=== PATIENT | male | born 1965 | race African-American/Black ===

== ENCOUNTER 2018-07-24 16:16 | Emergency (ER) | payer OTHER, SELFPAY ==
--- NOTE | 2018-07-24 17:13 | RAD ---
FRONTAL VIEW CHEST: Date: 07/24/18 COMPARISON: 11/29/15. INDICATION: Chest pain. FINDINGS: Lungs are clear. No effusion or pneumothorax. Cardiac silhouette is normal in size. IMPRESSION: No focal consolidation. POS: [facility]
[2018-07-24 17:22] LABS: #Basophils 0.1 thou/uL (0.0-0.2); #Eosinphils 0.2 thou/uL (0.0-0.7); #Lymphocytes 3.5 thou/uL (1.20-3.40); #Monocytes 2.2 thou/uL (0.11-0.59); #Neutrophils 10.6 thou/uL (1.40-6.50); %Basophils 0.7 % (0.0-1.0); %Eosinophils 1.1 % (0.0-10.0); %Lymphocytes 20.9 % (21.0-51.0); %Monocytes 13.3 % (0.0-10.0); Hemoglobin 13.8 g/dL (14.0-18.0); Mean Corpuscular HGB CONC 31.7 g/dL (32.0-36.0); Mean Corpuscular Hemoglobin 24.6 pg (27.0-31.0); Mean Corpuscular Volume 77.6 fL (78.0-98.0); Mean Platelet Volume 8.8 fL (7.4-10.4); Platelet Count 283 thou/uL (130-400); RBC Distribution Width 14.4 % (11.5-14.5); Red Blood Cell (RBC) Count 5.59 mill/uL (4.70-6.10); White Blood Cell (WBC) Count 16.5 thou/uL (4.8-10.8)
[2018-07-24 17:39] LABS: ALT (SGPT) 21 U/L (8-55); AST (SGOT) 25 U/L (5-34); Albumin 4.5 g/dL (3.5-5.0); Alkaline Phosphatase 77 U/L (40-150); Anion Gap 17 mmol/L (10-20); BUN (Urea Nitrogen) 14 mg/dL (8.4-25.7); Bilirubin, Total 0.3 mg/dL (0.2-1.2); Calc. Creatinine Clearance 0 mL/min (70-130); Calcium 10.3 mg/dL (7.8-10.44); Carbon Dioxide 24 mmol/L (22-29); Chloride 100 mmol/L (98-107); Estimated GFR-MDRD Greater than 90; Globulin 4.5 g/dL (2.4-3.5); Glucose 107 mg/dL (70-105); Lipase 37 U/L (8-78); Potassium 4.6 mmol/L (3.5-5.1); Sodium 136 mmol/L (136-145)
--- NOTE | 2018-07-24 18:22 | CT ---
CTA OF THE THORAX AND ABDOMEN UTILIZING AORTIC DISSECTION PROTOCOL AND 3D REFORMATTED IMAGIN07/24/18 COMPARISON: Prior exam dated 11/30/15. FINDINGS: No aneurysmal dilatation is seen involving the thoracic or abdominal aorta. There is complete occlusion of the right common iliac artery which is stable to the prior exam. There is moderate to severe stenosis involving the origin of the SRIDHAR which is stable. There are dupli cated renal arteries bilaterally without hemodynamically significant stenosis. There is moderate narr owing involving the proximal aspect of the SMA which is stable to the prior exam. The celiac artery i s widely patent. No definite central pulmonary embolus is evident. No confluent air space opacity of pleural effusion is noted. No definite pathologically enlarged lymph nodes are evident. There is a small cyst within the right hepatic lobe which is stable. Hypertrophy of the adrenal glands, left greater than right are similar appearing. There is layered gallstones within the gallbladder. The pancreas and spleen appear within normal limits. No hydronephrosis is evident. No free fluid or enlarged lymph nodes are evident. Small and large michelle l are unremarkable. There are scattered degenerative and osteoarthritic change. IMPRESSION: 1. No aortic stenosis, occlusion or aneurysmal formation. 2. 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 3. Stable moderate narrowing involving the proximal SMA. Stable moderate to severe narrowing of the SRIDHAR. 4. Stable hepatic cyst. 5. Cholelithiasis. 6. Stable hypertrophy of the adrenal glands. POS: [facility]
[2018-07-24] MEDS ORDERED: Aspirin 325 MG TAB ONE (18:35)
[2018-07-24] MEDS ORDERED: Aspirin Chewable 81 MG TAB ONE (18:38)
[2018-07-24 20:16] LABS: Troponin I Less than 0.010 ng/mL (< 0.028)
--- NOTE | 2018-07-24 21:04 | CON ---
DATE OF CONSULTATION: 07/24/2018 HISTORY OF PRESENT ILLNESS: Mr. Castrejon is a 53-year-old gentleman who presents emergency department with complaint of abdominal pain. Since his evaluation, his abdominal pain is completely resolved. He has been able to tolerate a diet throughout his pain, but says that he has not had a bowel movement in 4 days. He has not tried any sort of laxatives. He has no previous history of abdominal issues. He has no nausea or vomiting. He has had no fever or chills at home. Due to his complaints, a CT dissection protocol was performed. This shows no dissection or aneurysm. In comparison to his CT scan in 2016 when he was in the hospital, he was found to have a very similar appearing abdominal and pelvic CT scan. 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 The left common iliac artery is significantly narrowed. This is patent down into his femoral system. In evaluation of his CT scan from 2016, the femoral artery on the right, reconstitutes via collaterals and has runoff down toward the knee. On the left, the superficial femoral artery is chronically occluded with collateralization via the profunda down toward the knee. From a vascular standpoint, the patient complains of claudication of approximately 20 yards. He also has rest pain. He is much more comfortable sitting with his feet dangling. He has no issues with healing or tissue loss on his feet. PAST MEDICAL HISTORY: 1. Hypertension-uncontrolled. 2. Diabetes mellitus-the patient does not ever check his blood sugar. PAST SURGICAL HISTORY: None. CURRENT MEDICATIONS: 1. Metformin. 2. Lisinopril/HCTZ. 3. Statin. ALLERGIES: NONE. SOCIAL HISTORY: The patient smokes a pack of cigarettes a day. PHYSICAL EXAMINATION: GENERAL: This is a very comfortable appearing gentleman, resting on the stretcher with his feet dangling. VITAL SIGNS: His heart rate is 75 and regular, blood pressure 155/90. HEENT: Sclerae nonicteric. Pupils are equal and round bilaterally. NECK: Supple. He has no carotid bruit. CHEST: Clear bilaterally. HEART: Rhythm is regular. ABDOMEN: Soft and nontender, although protuberant. VASCULAR: He has palpable carotid and radial pulses bilaterally. I cannot palpate femoral or dorsalis pedis pulses on either side. He has a Doppler signal that is very soft and monophasic in both dorsalis pedis arteries bilaterally. ASSESSMENT AND PLAN: I reviewed his CT angiogram series. He really needs a formal aorta with runoff CT angiogram, which can be done as an outpatient. He also needs a cardiac workup and carotid ultrasound due to his previous stroke history. After all this, if we can discuss appropriate vascular reconstruction at that point, we will get him back to the office. Job ID: [id number]
--- NOTE | 2018-07-26 15:33 | EKG ---
Test Reason : CHEST PAIN Blood Pressure : / mmHG Vent. Rate : 091 BPM Atrial Rate : 091 BPM P-R Int : 126 ms QRS Dur : 078 ms QT Int : 354 ms P-R-T Axes : 024 084 050 degrees QTc Int : 435 ms Normal sinus rhythm No STEMI Normal ECG Confirmed by KIM Parmar, GIGI ([id number]), video effects editor CHAGO DAVENPORT ([id number]) on 07/26/2018 3:33:38 PM Referred By: Confirmed By:GIGI ALVAREZ M.D.
== END 2018-07-24 22:00 | disposition home or self-care (01) ==
LOC: ERS 16:16
DX: R07.89 Other chest pain (principal); I74.5 Embolism and thrombosis of iliac artery; K80.20 Calculus of gallbladder without cholecystitis without obstruction; E11.9 Type 2 diabetes mellitus without complications; E78.5 Hyperlipidemia, unspecified; I10 Essential (primary) hypertension; F17.210 Nicotine dependence, cigarettes, uncomplicated; Z79.84 Long term (current) use of oral hypoglycemic drugs; Z79.899 Other long term (current) drug therapy
CPT/HCPCS: 36415; 71045; 71275; 80053; 83690; 84484; 85025; 93005; 96360

== ENCOUNTER 2019-02-09 08:05 | Outpatient (CLI) | payer OTHER ==
--- NOTE | 2019-02-09 09:24 | CT ---
EXAM: CTA of the abdomen, pelvis, and bilateral lower extremities HISTORY: Peripheral vascular disease pain and numbness in the right leg; weakness in the right leg COMPARISON: 11/30/2015 TECHNIQUE: Multiple contiguous axial images were obtained a CTA of the abdomen, pelvis, and bilateral lower extremities with contrast. Sagittal and coronal 3-D MIP reformats were performed. FINDINGS: Liver: A small stable hypodensity in the liver likely represents a cyst.. Gallbladder: Gallstones are seen in the dependent aspect of the gallbladder. Kidneys: There is hyperplasia of both adrenal glands, left greater than right. Adrenal glands: Unremarkable. Spleen: Unremarkable. Pancreas: Unremarkable. Bowel: Unremarkable. Normal appendix. Reproductive organs :Unremarkable. Retroperitoneum: No lymphadenopathy Bones: Degenerative changes in the spine. Inferior thorax: Unremarkable. Abdominal aorta. Normal caliber without evidence of dissection or aneurysmal dilatation. Celiac trunk: Patent. SMA: Patent. Mild atherosclerotic disease at the ostium SRIDHAR: Patent. 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 Moderate diffuse nonfocal atherosclerotic disease of the left common iliac artery. Internal iliac arteries: Occluded and heavily diseased bilateral internal iliac arteries. External iliac arteries: Occluded right external iliac artery. Moderately diseased left external mar c artery. Common femoral arteries: Mildly diseased bilateral common femoral arteries. The right common femoral artery demonstrates flow via collaterals. Profunda femoral arteries: Unremarkable. Superficial femoral arteries: Severe focal atherosclerotic disease of the proximal right superficial femoral artery just distal to the bifurcation over a length of approximately 2.5 cm. Occlusion of the right superficial femoral artery along the midportion. Occlusion of the left superficial femoral artery at its takeoff proximally. Popliteal arteries: Mild diffuse atherosclerotic disease bilaterally. Reconstitution of flow bilatera lly via profunda collaterals.. Right lower extremity: Occlusion of the right peroneal artery. Moderately diseased right posterior ti bial artery beginning along its midportion extending distally. Moderately diseased left anterior tibial artery proximally and moderately diseased left posterior tibial artery along the midportion. T hree-vessel runoff is seen on the left and 2 vessel runoff on the right.. Left lower extremity: 3 vessel runoff without significant disease IMPRESSION: Stable atherosclerotic disease bilaterally with stable occlusion of the right common iliac artery and stable bilateral superficial femoral artery occlusion.
[2019-02-09] MEDS ORDERED: ADENOSINE 60 MG/20 ML VIAL ONE (10:01)
[2019-02-09] MEDS ORDERED: Iopamidol 370 76% 100 ML VIAL ONE (10:47)
--- NOTE | 2019-02-09 12:41 | NM ---
EXAM: Nuclear medicine cardiac perfusion examination with ejection fraction HISTORY: Preoperative examination. History of hypertension, diabetes, and dyslipidemia TECHNIQUE: Rest images: 9.8 mCi technetium 99m sestamibi Stress images: 30.7 mCi of technetium 9M sestamibi; Adenosine COMPARISON: None FINDINGS: Tomographic images: No fixed or reversible perfusion defects. Gated images: Normal wall motion and ejection fraction of 61%. EDV: 96 mL LHR: 0.3 TID: 1.1 IMPRESSION: No evidence of ischemia
--- NOTE | 2019-02-10 13:06 | STRESS ---
Acquisition Time: 2019-02-09 10:52:22 Total Exercise Time: 00:04:00 Test Indications: PREOPERATIVE CLEARANCE Medications: Protocol: ADENOSINE Max HR: 102 BPM 61% of Pred: 165 BPM Max BP: 160/080 mmHG Max Work Load: 1.0 METS RESTING ECG: NORMAL SINUS RHYTHM AT 67 BPM SYMPTOMS: DYSPNEA ON EXERTION NORMAL BP RESPONSE ECTOPY: NONE ECG STRESS: NO SIGNIFICANT CHANGES INTERPRETATION: AWAIT NUCLEAR IMAGES FOR DEFINITIVE DIAGNOSIS Confirmed by MOOK PIERRE ([id number]), editor managing director ROSY FLOOD ([id number]) on 02/10/2019 1:06:04 PM Referred By: MD Alex VELIZ Confirmed By:MOOK PIERRE
== END 2019-02-09 08:06 | disposition home or self-care (01) ==
LOC: CT 08:05
PROVIDERS: ATTEND Thoracic Surgery (Cardiothoracic Vascular Surgery)
DX: Z01.818 Encounter for other preprocedural examination (principal); I70.213 Atherosclerosis of native arteries of extremities with intermittent claudication, bilateral legs; I74.5 Embolism and thrombosis of iliac artery
CPT/HCPCS: 75635; 78452; 93017; A9500; J0153; Q9967

== ENCOUNTER 2019-02-13 11:30 | Inpatient (IN) | payer OTHER ==
[2019-02-13 13:29] LABS: Hemoglobin 14.2 g/dL (14.0-18.0); Mean Corpuscular HGB CONC 33.1 g/dL (32.0-36.0); Mean Corpuscular Hemoglobin 24.9 pg (27.0-31.0); Mean Corpuscular Volume 75.2 fL (78.0-98.0); Mean Platelet Volume 9.1 fL (7.4-10.4); Platelet Count 233 thou/uL (130-400); Red Blood Cell (RBC) Count 5.71 mill/uL (4.70-6.10); White Blood Cell (WBC) Count 12.2 thou/uL (4.8-10.8)
[2019-02-13 13:49] LABS: Anion Gap 14 mmol/L (10-20); BUN (Urea Nitrogen) 9 mg/dL (8.4-25.7); Calc. Creatinine Clearance 0 mL/min (70-130); Calcium 10.2 mg/dL (7.8-10.44); Carbon Dioxide 26 mmol/L (22-29); Chloride 104 mmol/L (98-107); Estimated GFR-MDRD Greater than 90; Glucose 73 mg/dL (70-105); Potassium 4.8 mmol/L (3.5-5.1); Sodium 139 mmol/L (136-145)
[2019-02-16] MEDS ORDERED: CEFAZOLIN 2 GM in Premix Bag 1 BAG IVPB SCH (06:30)
[2019-02-16] MEDS ORDERED: Vancomycin HCl 1.5 GM in Sodium Chloride 0.9% 250 ML 300 ML IVPB SCH ×2 (06:30→12:00)
[2019-02-16] MEDS ORDERED: Dexmedetomidine 200 MCG/2 ML VIAL ONE (06:52)
[2019-02-16] MEDS ORDERED: Norepinephrine 4 MG/4 ML VIAL ONE ×2 (06:52→07:04)
[2019-02-16] MEDS ORDERED: Vecuronium 10 MG VIAL ONE ×2 (06:52→16:39)
[2019-02-16] MEDS ORDERED: Fentanyl 250 MCG/5 ML VIAL ONE (06:52)
[2019-02-16] MEDS ORDERED: Midazolam HCl 2 mg/2 ml Vial ONE ×2 (06:52→07:12)
[2019-02-16] MEDS ORDERED: Heparin 10,000 UNITS/1 ML VIAL 30,000 UNITS in Sodium Chloride 0.9% 1,000 ML FS SCH (07:15)
[2019-02-16] MEDS ORDERED: Heparin 5,000 UNITS/ML VIAL ONE (08:01)
[2019-02-16] MEDS ORDERED: Albumin 5% 0 ML ONE (08:49)
[2019-02-16] MEDS ORDERED: Albumin 5% 500 ML ONE (08:49)
[2019-02-16] MEDS ORDERED: Insulin Regular 300 UNITS/3 ML VIAL ONE (08:59)
[2019-02-16] MEDS ORDERED: Protamine Sulfate 50 MG/5 ML VIAL ONE ×2 (09:47)
[2019-02-16] MEDS ORDERED: Nitroglycerin 50 MG/250 ML BOT 250 ML IVPB PRN (10:52)
[2019-02-16] MEDS ORDERED: Insulin Regular 300 UNITS/3 ML VIAL SC PRN (10:52)
[2019-02-16] MEDS ORDERED: Acetaminophen 325 MG TAB PO PRN (10:52)
[2019-02-16] MEDS ORDERED: Ondansetron PF 4 MG/2 ML Vial IVP PRN (10:52)
[2019-02-16] MEDS ORDERED: Fentanyl 100 MCG/2 ML VIAL SLOW IVP PRN (10:52)
[2019-02-16] MEDS ORDERED: Promethazine HCl 25 MG/ML VIAL PR PRN (10:52)
[2019-02-16] MEDS ORDERED: Phenylephrine 10 MG/NS 250 ML 250 ML IVPB PRN (10:52)
[2019-02-16] MEDS ORDERED: Promethazine HCl 25 MG/ML VIAL IM PRN (10:52)
[2019-02-16] MEDS ORDERED: Fentanyl 100 MCG/2 ML VIAL ONE (11:04)
[2019-02-16] MEDS ORDERED: Ondansetron HCl/PF 4 MG/2 ML Vial IVP PRN (12:13)
--- NOTE | 2019-02-16 12:30 | CON ---
DATE OF CONSULTATION: HISTORY OF PRESENT ILLNESS: Kurt Castrejon is a 53-year-old gentleman, who underwent aortobifem surgery by Dr. Kelvin Richard. He is in the PAC unit. There are no family members. Having some pain, but denies any difficulty breathing. He is extubated. PAST MEDICAL HISTORY: Pertinent for hypertension and diabetes. PAST SURGICAL HISTORY: None. SOCIAL HISTORY: Tobacco a pack a day. Drinks several beers a day. SOCIAL HISTORY: Unremarkable. FAMILY HISTORY: Unremarkable. HOME MEDICATIONS: Includes, 1. Glyburide 5. 2. Pravachol 40. 3. Lisinopril 20. ALLERGIES: NONE. REVIEW OF SYSTEMS: Ten-point negative. Postop in the PAC unit. PHYSICAL EXAMINATION: VITAL SIGNS: Saturations are 96% on room air, pulse 70, blood pressure . CHEST: No wheezing or crackles. CARDIAC: Normal S1 and S2. No gallops. ABDOMEN: No mass. LABORATORY DATA: Blood sugar is 188. His white count is 12,000, H and H 14 and 42, and platelet count is normal. His chemistry profile, 02/13/2019, shows normal renal function. ASSESSMENT: 1. Status post aortobifemoral surgery. 2. Diabetes. 3. Hypertension. 4. History of previous left-sided Wisdom's palsy. PLAN: Pulmonary will follow while in the ICU. Continue supportive care, neb treatment, PT, early ambulation. Consultation note, 70 minutes, 50% direct patient care. Job ID: [id number]
--- NOTE | 2019-02-16 13:28 | OP ---
DATE OF PROCEDURE: 02/16/2019 PREOPERATIVE DIAGNOSIS: Aortoiliac occlusive disease. POSTOPERATIVE DIAGNOSIS: Aortoiliac occlusive disease. PROCEDURES PERFORMED: 1. Aorto left common iliac and right common femoral/superficial femoral artery bypass utilizing a 16 x 8 Hemashield Gold bifurcated graft. 2. Right common femoral artery endarterectomy. REAL ESTATE PHOTOGRAPHER SURGEON: Hunter Vaqzuez MD ANESTHESIA: General endotracheal - Dr. Onofre Bowen. ESTIMATED BLOOD LOSS: Minimal. CELL SAVER: 234 mL. DESCRIPTION OF PROCEDURE: After consent was obtained, the patient was brought to the operating room, placed in supine position on the operating table. Appropriate central line and monitors were placed and general anesthesia was induced. Abdomen, groins, and legs were prepped and draped in usual sterile fashion. A skin incision was made over the common femoral artery on the right. Common femoral, profunda femoris, and superficial femoral arteries are all carefully dissected free from surrounding tissues. A subcutaneous tunnel was created under the inguinal ligament. The groin was packed with Betadine-soaked gauze. A midline abdominal incision was made and dissection through the linea alba and peritoneum obtained with electrocautery. [place] and [place] retractors were brought in the operative field. The omentum was retracted superiorly. The omentum was carefully dissected free from the adhesions to the white line of [place] on the right. Small bowel was delivered to the right. The duodenum was carefully dissected free from the retroperitoneum and delivered to the right. The retroperitoneum was entered. The aorta and aortic bifurcation were carefully dissected free. The SRIDHAR was divided between clips. This was a small artery that was patent but very small on CT angio. The patient was given 7500 units of heparin. After 3 minutes, the aorta and right common iliac arteries were clamped. An incision was made in the aorta and extended up towards the left renal vein. The 16 x 8 graft had been preselected and it was sewn in place with running 4-0 prolene suture. On release of clamps, good hemostasis. The right limb of the graft was tunneled through the retroperitoneum into the groin. The left limb of the graft was cut to appropriate length and sewn in place to the left common iliac artery. Antegrade flow was reestablished to the left leg. Hemostasis was ensured with both anastomoses. Attention was then turned to the right groin. Common femoral, profunda femoris branches, and the SFA were clamped. The SFA was soft and the incision was begun on the SFA and extended back proximally to the common femoral artery proximal to the profunda branches. The profunda was back blood easily. An endarterectomy was performed to clear the SFA and common femoral artery of all the plaque. The graft was cut to appropriate length for a long patch angioplasty and sewn in place with running 5-0 Prolene suture. On release of the clamps in the groin, there was good backbleeding. Artery was flushed with heparinized saline and suture line tied. Multiple stitches were placed for hemostasis. Antegrade flow was reestablished down the graft. Protamine was administered. Hemostasis was ensured in the groin and the wound was packed. Attention was returned back to the abdominal cavity. The graft and anastomoses in the abdomen were inspected for hemostasis. The graft was retroperitonealized with running 2-0 Vicryl suture. The bowels were placed back in anatomic position and covered with omentum. The midline fascia was closed in a running fashion with looped #1 PDS. The wound was then irrigated and closed with clips. Groin incision was inspected, there was a great palpable pulse within the femoral artery distal to the graft. Wound was irrigated, closed in layers and Dermabond applied to skin. The patient tolerated the procedure well, was awakened, extubated, and transferred to the recovery room in stable condition. Job ID: [id number]
--- NOTE | 2019-02-16 14:08 | RAD ---
PORTABLE CHEST: HISTORY: Central line placement. COMPARISON: 07/24/2018 FINDINGS: Heart size appears borderline enlarged, considering the portable technique. A left subclavian line h as been placed. The catheter tip overlies the superior vena cava. There are no signs of pneumothora x. An NG tube is seen with the tip below the hemidiaphragm. Surgical lexi are seen in the abdome n, midline. Subsegmental atelectatic changes are seen in the lung bases. IMPRESSION: 1. Placement of a left central line. No signs of pneumothorax. 2. Subsegmental atelectasis in the lung bases. POS: [facility]
[2019-02-16] MEDS: CEFAZOLIN 2 GM in Premix Bag 1 BAG IVPB SCH ×2 (15:08→21:32)
[2019-02-16] MEDS: Ketorolac Tromethamine 30 MG/ML VIAL IVP SCH ×3 (15:09→22:31)
[2019-02-16] MEDS: D5 1/2 NS w/20 mEq KCL 1,000 ML IV SCH ×2 (15:10→22:32)
[2019-02-16] MEDS: Vancomycin HCl 1.5 GM in Sodium Chloride 0.9% 250 ML 300 ML IVPB SCH (15:53)
[2019-02-16] MEDS ORDERED: Heparin 10,000 UNITS/ 10 ML VIAL ONE (16:39)
[2019-02-16] MEDS ORDERED: Ondansetron PF 4 MG/2 ML Vial ONE (16:39)
[2019-02-16] MEDS ORDERED: Lidocaine 1% PF 5 ML VIAL ONE (16:39)
[2019-02-16] MEDS ORDERED: Glycopyrrolate 0.2 MG/ML 5 ML SYRINGE ONE (16:39)
[2019-02-16] MEDS ORDERED: PROPOFOL 200 MG/20 ML VIAL ONE (16:39)
[2019-02-16 17:21] VITALS: BMI 26.7
[2019-02-16] MEDS: Morphine 2 MG/ML SYRINGE SLOW IVP PRN (21:07)
[2019-02-16] MEDS: hydrALAZINE 20 MG/ML VIAL SLOW IVP PRN (22:31)
[2019-02-16] MEDS: Fentanyl 100 MCG/2 ML VIAL SLOW IVP PRN (23:14)
[2019-02-17] MEDS: Morphine 2 MG/ML SYRINGE SLOW IVP PRN ×2 (01:47→05:18)
[2019-02-17] MEDS: Vancomycin HCl 1.5 GM in Sodium Chloride 0.9% 250 ML 300 ML IVPB SCH (03:39)
[2019-02-17] MEDS: Fentanyl 100 MCG/2 ML VIAL SLOW IVP PRN (03:39)
[2019-02-17] MEDS: hydrALAZINE 20 MG/ML VIAL SLOW IVP PRN (04:40)
[2019-02-17 04:45] LABS: #Basophils 0.1 thou/uL (0.0-0.2); #Eosinphils 0.1 thou/uL (0.0-0.7); #Lymphocytes 1.6 thou/uL (1.20-3.40); #Monocytes 1.5 thou/uL (0.11-0.59); #Neutrophils 11.5 thou/uL (1.40-6.50); %Basophils 0.6 % (0.0-1.0); %Eosinophils 0.8 % (0.0-10.0); %Lymphocytes 10.8 % (21.0-51.0); %Monocytes 9.9 % (0.0-10.0); %Neutrophils 77.9 % (42.0-75.0); Mean Corpuscular HGB CONC 31.9 g/dL (32.0-36.0); Mean Corpuscular Hemoglobin 24.2 pg (27.0-31.0); Mean Corpuscular Volume 75.9 fL (78.0-98.0); Mean Platelet Volume 8.6 fL (7.4-10.4); Platelet Count 183 thou/uL (130-400); RBC Distribution Width 13.7 % (11.5-14.5); Red Blood Cell (RBC) Count 4.96 mill/uL (4.70-6.10); White Blood Cell (WBC) Count 14.8 thou/uL (4.8-10.8)
[2019-02-17] MEDS: Ketorolac Tromethamine 30 MG/ML VIAL IVP SCH ×4 (05:18→23:44)
[2019-02-17] MEDS: CEFAZOLIN 2 GM in Premix Bag 1 BAG IVPB SCH (05:18)
[2019-02-17 05:41] LABS: Anion Gap 10 mmol/L (10-20); BUN (Urea Nitrogen) 10 mg/dL (8.4-25.7); Calc. Creatinine Clearance 114 mL/min (70-130); Calcium 8.3 mg/dL (7.8-10.44); Carbon Dioxide 24 mmol/L (22-29); Chloride 107 mmol/L (98-107); Estimated GFR-MDRD Greater than 90; Glucose 118 mg/dL (70-105); Potassium 3.1 mmol/L (3.5-5.1); Sodium 138 mmol/L (136-145)
[2019-02-17] MEDS ORDERED: Potassium Chloride 20 MEQ in Premix Bag 1 BAG IVPB SCH (07:00)
[2019-02-17] MEDS: Aspirin Chewable 81 MG TAB PO SCH (07:53)
[2019-02-17] MEDS: Lisinopril 20 MG TAB PO SCH (07:54)
--- NOTE | 2019-02-17 08:57 | PRG ---
DATE OF SERVICE: 02/17/2019 SUBJECTIVE: This morning, he is awake, alert, and responsive. He is still having some pain, but no shortness of breath. OBJECTIVE: VITAL SIGNS: Pulse 93, blood pressure 120/75, respirations 18, saturations 96%. CHEST: Bilateral rhonchi. CARDIAC: Normal S1 and S2. No gallops. ABDOMEN: No masses. LABORATORY DATA: White count 14,000. Lytes are normal. Potassium 3.3. He is still on a nitroglycerin drip, which is being weaned off. ASSESSMENT: Chronic obstructive pulmonary disease, status post aortobifemoral. Agree with aggressive neb treatments. PT, supportive care. We will follow. Job ID: [id number] [facility]
[2019-02-17] MEDS: HYDROcodone/Acetaminophen 5/325 mg Tablet PO PRN ×2 (12:49→19:46)
[2019-02-17] MEDS: D5 1/2 NS w/20 mEq KCL 1,000 ML IV SCH ×2 (14:06→19:45)
--- NOTE | 2019-02-17 17:20 | CON ---
DATE OF CONSULTATION: Mr. Castrejon is a 53-year-old male, who underwent surgery with Dr. Richard yesterday morning. He had an aorto left common iliac and right common femoral, superficial femoral artery bypass using a 16 x 8 Hemashield Gold bifurcated graft. He had a right common femoral endarterectomy. He is transferred to critical care unit afterwards and is doing well postextubation. My partner saw this patient. CANCELED DICTATION Job ID: [id number]
[2019-02-17] MEDS: Atorvastatin Calcium 10 MG TAB PO SCH (20:39)
[2019-02-18] MEDS: D5 1/2 NS w/20 mEq KCL 1,000 ML IV SCH (05:00)
[2019-02-18] MEDS: HYDROcodone/Acetaminophen 5/325 mg Tablet PO PRN ×4 (05:00→20:18)
[2019-02-18] MEDS: Ketorolac Tromethamine 30 MG/ML VIAL IVP SCH ×4 (05:33→23:43)
[2019-02-18] MEDS ORDERED: D5 1/2 NS w/20 mEq KCL 1,000 ML IV SCH (07:12)
[2019-02-18] MEDS: Aspirin Chewable 81 MG TAB PO SCH (09:06)
[2019-02-18] MEDS: Lisinopril 20 MG TAB PO SCH (09:06)
--- NOTE | 2019-02-18 09:36 | PRG ---
DATE OF SERVICE: 02/18/2019 SUBJECTIVE: The patient this morning, he is better, less short of breath, less pain. OBJECTIVE: VITAL SIGNS: Saturations are 93% on room air, pulse 91, respiratory rate 16, blood pressure 120/88. CHEST: No wheezing, crackles. CARDIAC: Normal S1, S2. No gallops. ABDOMEN: No masses. ASSESSMENT: Chronic obstructive pulmonary disease, stable. PLAN: Continue present treatment. Will be transferred out of the ICU. Job ID: [id number]
[2019-02-18] MEDS: hydrALAZINE 20 MG/ML VIAL SLOW IVP PRN (16:22)
[2019-02-18] MEDS ORDERED: Furosemide 40 MG/4 ML VIAL SLOW IVP SCH (17:45)
[2019-02-18] MEDS: Atorvastatin Calcium 10 MG TAB PO SCH (20:19)
[2019-02-19] MEDS: Ketorolac Tromethamine 30 MG/ML VIAL IVP SCH ×4 (05:34→23:45)
[2019-02-19] MEDS: Aspirin Chewable 81 MG TAB PO SCH (08:19)
[2019-02-19] MEDS: Lisinopril 20 MG TAB PO SCH (08:19)
--- NOTE | 2019-02-19 09:21 | PRG ---
DATE OF SERVICE: 02/19/2019 SUBJECTIVE: This morning, he is doing well, less pain, less shortness of breath. OBJECTIVE: VITAL SIGNS: Saturations are 90% on room air, respiratory rate 14, temperature 98, blood pressure 130/88. CHEST: No wheezing. CARDIAC: Normal S1 and S2. No gallops. ABDOMEN: No masses. ASSESSMENT: Chronic obstructive pulmonary disease, status post aortobifem. PLAN: Continue present neb treatment, PT, supportive care. Disposition as per Surgery. Job ID: [id number]
[2019-02-19] MEDS: glyBURIDE 5 MG TAB PO SCH (17:32)
[2019-02-19] MEDS: Atorvastatin Calcium 10 MG TAB PO SCH (22:21)
[2019-02-19] MEDS: hydrALAZINE 20 MG/ML VIAL SLOW IVP PRN (22:21)
[2019-02-20] MEDS: Ketorolac Tromethamine 30 MG/ML VIAL IVP SCH ×3 (05:43→17:03)
[2019-02-20] MEDS: hydrALAZINE 20 MG/ML VIAL SLOW IVP PRN ×3 (05:44→18:04)
--- NOTE | 2019-02-20 09:19 | PRG ---
DATE OF SERVICE: 02/20/2019 SUBJECTIVE: This is a 53-year-old gentleman, status post aortobifem who is doing well. OBJECTIVE: VITAL SIGNS: Blood pressure 146/77, saturations are 100% on room air, pulse 16, temperature 98. CHEST: No wheezing, crackles. CARDIAC: Normal S1, S2. No gallops. ASSESSMENT AND PLAN: Status post aortobifem, chronic obstructive pulmonary disease stable. Disposition as per Surgery. Pulmonary will follow at a distance. Job ID: [id number]
[2019-02-20] MEDS: Lisinopril 20 MG TAB PO SCH (09:44)
[2019-02-20] MEDS: Aspirin Chewable 81 MG TAB PO SCH (09:44)
[2019-02-20] MEDS: HYDROcodone/Acetaminophen 5/325 mg Tablet PO PRN (10:02)
[2019-02-20] MEDS: glyBURIDE 5 MG TAB PO SCH (17:03)
[2019-02-20] MEDS: Atorvastatin Calcium 10 MG TAB PO SCH (20:02)
[2019-02-20] MEDS ORDERED: Lisinopril 20 MG TAB PO SCH (20:45)
[2019-02-21] MEDS: Ketorolac Tromethamine 30 MG/ML VIAL IVP SCH ×3 (00:18→11:54)
[2019-02-21] MEDS: Lisinopril 20 MG TAB PO SCH (09:05)
[2019-02-21] MEDS: Aspirin Chewable 81 MG TAB PO SCH (09:05)
[2019-02-21 10:54] VITALS: BP 149/73; TEMP 97.6
--- NOTE | 2019-02-22 12:33 | DIS ---
DATE OF ADMISSION: 02/16/2019 DATE OF DISCHARGE: 02/20/2019 DIAGNOSES: Peripheral vascular disease status post aorto right common femoral, left common iliac artery bypass. DESCRIPTION OF HOSPITAL STAY: Mr. Castrejon was admitted electively by iliac/femoral bypass. He has done well postoperatively. Currently, he is ambulatory, tolerating regular diet, having good bowel and bladder function. Incision is clean and dry without evidence of infection. DISCHARGE MEDICATIONS: Include: 1. Aspirin 81 mg daily. 2. Glyburide 5 mg at bedtime. 3. Lisinopril 20 mg daily. 4. Pravachol 40 mg daily. 5. Eure 5/325 one to two q.6 hours p.r.n. pain. FOLLOWUP: Follow up with me in 2 weeks. Job ID: [id number]
[2019-02-24 16:01] LABS: Actual Bicarbonate (HCO3a) 21.1 mEq/L (22-28); Analyzer IN Cardio OR; Base Excess (BEa) -4.2 mEq/L (-2.0 to +3.0); CO2 Tension 39.4 mmHg (35.0-45.0); Calcium, Ionized 1.07 mmol/L (1.12-1.30); Hemoglobin (Hb) 10.8 g/dL (14.0-18.0); Potassium - ABG Lab 2.89 mmol/L (3.70-5.30); pH, Arterial 7.35 (7.35-7.45)
[2019-02-24 16:02] LABS: Actual Bicarbonate (HCO3a) 20.5 mEq/L (22-28); Analyzer IN Cardio OR; CO2 Tension 28.7 mmHg (35.0-45.0); Calcium, Ionized 1.09 mmol/L (1.12-1.30); Carboxyhemoglobin (COHb) 1.5 gm% (0.0-3.0); Hemoglobin (Hb) 12.5 g/dL (14.0-18.0); Potassium - ABG Lab 3.25 mmol/L (3.70-5.30); pH, Arterial 7.47 (7.35-7.45)
[2019-02-24 16:02] LABS: Actual Bicarbonate (HCO3a) 20.6 mEq/L (22-28); Analyzer IN Cardio OR; Base Excess (BEa) -3.5 mEq/L (-2.0 to +3.0); CO2 Tension 34.2 mmHg (35.0-45.0); Calcium, Ionized 1.11 mmol/L (1.12-1.30); Carboxyhemoglobin (COHb) 1.2 gm% (0.0-3.0); Hemoglobin (Hb) 12.1 g/dL (14.0-18.0); O2 Tension (PaO2) 317.1 mmHg (80.0-100.0); Potassium - ABG Lab 3.41 mmol/L (3.70-5.30)
[2019-02-24 16:03] LABS: Puncture Site ALINE
[2019-02-24 16:04] LABS: O2 Tension (PaO2) 537.1 mmHg (80.0-100.0); Puncture Site ALINE
[2019-02-24 16:04] LABS: Puncture Site ALINE
== END 2019-02-21 14:35 | disposition home or self-care (01) | DRG 271 ==
LOC: SURG A 02-16 05:31 → CCU 02-16 11:18 → SURG A 02-19 07:19
PROVIDERS: ADMIT Thoracic Surgery (Cardiothoracic Vascular Surgery); ATTEND Thoracic Surgery (Cardiothoracic Vascular Surgery)
PROC: 041 Lower Arteries, Bypass (ICD-10-PCS; principal; 2019-02-16)
PROC: 04100JH Bypass Abdominal Aorta to Right Femoral Artery with Synthetic Substitute, Open Approach (ICD-10-PCS; 2019-02-16)
DX: E11.51 Type 2 diabetes mellitus with diabetic peripheral angiopathy without gangrene (principal); I74.09 Other arterial embolism and thrombosis of abdominal aorta; I70.213 Atherosclerosis of native arteries of extremities with intermittent claudication, bilateral legs; I25.10 Atherosclerotic heart disease of native coronary artery without angina pectoris; I10 Essential (primary) hypertension; E78.2 Mixed hyperlipidemia; F17.210 Nicotine dependence, cigarettes, uncomplicated; J44.9 Chronic obstructive pulmonary disease, unspecified; Z79.84 Long term (current) use of oral hypoglycemic drugs; Z79.899 Other long term (current) drug therapy
CPT/HCPCS: 36415; 36416; 36430; 71045; 80048; 82805; 85025; 85027; 86850; 86900; 86901; 94640; J0360; J0690; J1642; J1644; J1815; J1885; J1940; J2001; J2250; J2270; J2405; J2704; J2720; J3010; J3370; J3480; J7050; J7620; P9045

== ENCOUNTER 2019-02-13 11:56 | Outpatient (CLI) | payer OTHER ==
--- NOTE | 2019-02-13 17:02 | EKG ---
Test Reason : Blood Pressure : / mmHG Vent. Rate : 076 BPM Atrial Rate : 076 BPM P-R Int : 156 ms QRS Dur : 086 ms QT Int : 384 ms P-R-T Axes : 076 090 044 degrees QTc Int : 432 ms Normal sinus rhythm Rightward axis Borderline ECG When compared with ECG of 24-JUL-2018 16:23, No significant change was found Confirmed by DR. Marvin BRANDON ([id number]) on 02/13/2019 5:01:31 PM Referred By: AUDRA Confirmed By:DR. Marvin BRANDON
== END 2019-02-13 11:57 | disposition home or self-care (01) ==
LOC: LABBT 11:56
PROVIDERS: ATTEND Thoracic Surgery (Cardiothoracic Vascular Surgery)
DX: Z01.810 Encounter for preprocedural cardiovascular examination (principal); I73.9 Peripheral vascular disease, unspecified
CPT/HCPCS: 93005; 93010

== ENCOUNTER 2019-07-06 22:45 | Emergency (ER) | payer OTHER | END 2019-07-06 23:22 | disposition home or self-care (01) | LOC: ERS 22:45 | DX: E11.621 Type 2 diabetes mellitus with foot ulcer (principal); L97.519 Non-pressure chronic ulcer of other part of right foot with unspecified severity; E78.5 Hyperlipidemia, unspecified; I10 Essential (primary) hypertension; F17.210 Nicotine dependence, cigarettes, uncomplicated; Z79.899 Other long term (current) drug therapy; Z79.84 Long term (current) use of oral hypoglycemic drugs | CPT/HCPCS: 99282 ==

== ENCOUNTER 2019-12-10 16:03 | Emergency (ER) | payer OTHER, SELFPAY ==
[2019-12-10] MEDS ORDERED: Ketorolac Tromethamine 30 MG/ML VIAL ONE (17:41)
[2019-12-11 14:46] LABS: SARS-CoV-2 MS2 Positive; SARS-CoV-2 N Gene Negative; SARS-CoV-2 S Gene Negative; SARS-CoV-2 orf1ab Negative
== END 2019-12-10 18:45 | disposition home or self-care (01) ==
LOC: ERS 16:03
DX: M54.5 Low back pain (principal); I10 Essential (primary) hypertension; Z20.828 Contact with and (suspected) exposure to other viral communicable diseases; F17.210 Nicotine dependence, cigarettes, uncomplicated; E78.5 Hyperlipidemia, unspecified; E11.9 Type 2 diabetes mellitus without complications; Z79.899 Other long term (current) drug therapy; Z79.84 Long term (current) use of oral hypoglycemic drugs
CPT/HCPCS: 87635; 96374; J1885; U0003